=== PATIENT | female | born 1980 | race Caucasian/White ===

== ENCOUNTER → 2019-05-02 10:22 | Outpatient (BNVA) | payer MEDICARE, MEDICAID, SELFPAY | PROVIDERS: Family Provider Family Medicine; Visit Provider Nurse Practitioner | DX: F43.12 Post-traumatic stress disorder, chronic (principal); F45.1 Undifferentiated somatoform disorder; F41.1 Generalized anxiety disorder | CPT/HCPCS: 99213 ==

== ENCOUNTER → 2019-07-29 07:42 | Outpatient (BNVA) | payer MEDICARE, MEDICAID, SELFPAY | PROVIDERS: Family Provider Family Medicine; Visit Provider Nurse Practitioner | DX: F43.12 Post-traumatic stress disorder, chronic (principal); F45.1 Undifferentiated somatoform disorder; F41.1 Generalized anxiety disorder | CPT/HCPCS: 99213 ==

== ENCOUNTER → 2019-11-14 08:26 | Outpatient (BNVA) | payer MEDICARE, MEDICAID, SELFPAY | PROVIDERS: Family Provider Family Medicine; Visit Provider Nurse Practitioner | DX: F43.12 Post-traumatic stress disorder, chronic (principal); F45.1 Undifferentiated somatoform disorder; F41.1 Generalized anxiety disorder | CPT/HCPCS: 99213 ==

== ENCOUNTER 2019-11-30 10:31 | Outpatient (CLI) | payer MEDICARE, MEDICAID, SELFPAY ==
--- NOTE | 2019-11-30 10:53 | MR_ITS ---
WS: [id number] MRI THORACIC SPINE WITHOUT CONTRAST TECHNIQUE: Sagittal T1, T2 and STIR imaging. Axial T2 imaging. Noncontrast imaging obtained. CLINICAL INFORMATION: PAIN IN THORACIC SPINE COMPARISON: MRI October 21, 2016 FINDINGS: Mild thoracic curve. No acute compression. No high-grade central canal stenosis. Cord signal is gabino l. Tiny central protrusion in the mid thoracic spine at T8-T9 with slight contact of the thoracic cor e. No significant central canal stenosis. Mild facet arthropathy lower thoracic spine. Mild right T10-11 bony foraminal narrowing. Normal parav ertebral soft tissues. Cervical canal is patent. Thoracic aorta is normal. Aberrant right subclavian artery. Adrenal glands are normal. Tiny left renal cyst. MR/MR thoracic spin wo con* [id number] IMPRESSION: 1. Mild thoracic curve. No acute compression. No high-grade central canal sten osis. 2. Tiny central protrusion T8-T9 with slight contact of the thoracic cord. Mil d central canal stenosis. This is unchanged from previous. 3. Mild right T10-11 Bony foraminal narrowing. 4. Mild facet arthropathy lower thoracic spine. 5. Cord signal is normal. 6. Incidentally noted is Aberrant right subclavian artery.
== END 2019-11-30 10:32 | disposition home or self-care (01) ==
LOC: RADWPI 10:41
PROVIDERS: Family Provider Nurse Practitioner; PCP Nurse Practitioner; Visit Provider Nurse Practitioner
DX: M43.9 Deforming dorsopathy, unspecified (principal); M51.24 Other intervertebral disc displacement, thoracic region; M47.814 Spondylosis without myelopathy or radiculopathy, thoracic region; Q27.8 Other specified congenital malformations of peripheral vascular system
CPT/HCPCS: 72146

== ENCOUNTER → 2020-02-09 08:39 | Outpatient (BNVA) | payer MEDICARE, MEDICAID, SELFPAY | PROVIDERS: Family Provider Nurse Practitioner; PCP Nurse Practitioner; Visit Provider Nurse Practitioner | DX: F43.12 Post-traumatic stress disorder, chronic (principal); F41.1 Generalized anxiety disorder; F45.1 Undifferentiated somatoform disorder | CPT/HCPCS: 99214 ==

== ENCOUNTER → 2020-03-22 09:42 | Outpatient (BNVA) | payer MEDICARE, MEDICAID, SELFPAY | PROVIDERS: Family Provider Nurse Practitioner; PCP Nurse Practitioner; Visit Provider Nurse Practitioner | DX: F43.12 Post-traumatic stress disorder, chronic (principal); F45.1 Undifferentiated somatoform disorder; F41.1 Generalized anxiety disorder | CPT/HCPCS: 99214 ==

== ENCOUNTER → 2020-04-19 07:54 | Outpatient (BNVA) | payer MEDICARE, MEDICAID, SELFPAY | PROVIDERS: Family Provider Nurse Practitioner; PCP Nurse Practitioner; Visit Provider Nurse Practitioner | DX: F43.12 Post-traumatic stress disorder, chronic (principal); F45.1 Undifferentiated somatoform disorder; F41.1 Generalized anxiety disorder | CPT/HCPCS: 99214 ==

== ENCOUNTER → 2020-05-09 07:30 | Outpatient (BNVA) | payer MEDICARE, MEDICAID, SELFPAY | PROVIDERS: Family Provider Nurse Practitioner; PCP Nurse Practitioner; Visit Provider Nurse Practitioner | DX: F43.12 Post-traumatic stress disorder, chronic (principal); F45.1 Undifferentiated somatoform disorder; F41.1 Generalized anxiety disorder | CPT/HCPCS: 99214 ==

== ENCOUNTER → 2020-07-10 09:34 | Outpatient (BNVA) | payer MEDICARE, MEDICAID, SELFPAY | PROVIDERS: Family Provider Nurse Practitioner; PCP Nurse Practitioner; Visit Provider Nurse Practitioner | DX: F41.1 Generalized anxiety disorder (principal); F45.1 Undifferentiated somatoform disorder; F43.12 Post-traumatic stress disorder, chronic | CPT/HCPCS: 99214 ==

== ENCOUNTER → 2020-10-09 07:43 | Outpatient (BNVA) | payer MEDICARE, MEDICAID, SELFPAY | PROVIDERS: Family Provider Nurse Practitioner; PCP Nurse Practitioner; Visit Provider Nurse Practitioner | DX: F41.1 Generalized anxiety disorder (principal); F45.1 Undifferentiated somatoform disorder; F43.12 Post-traumatic stress disorder, chronic | CPT/HCPCS: 99214 ==

== ENCOUNTER → 2021-01-08 07:56 | Outpatient (BNVA) | payer MEDICARE, MEDICAID, SELFPAY | PROVIDERS: Family Provider Nurse Practitioner; PCP Nurse Practitioner; Visit Provider Nurse Practitioner | DX: F41.1 Generalized anxiety disorder (principal); F45.1 Undifferentiated somatoform disorder; F43.12 Post-traumatic stress disorder, chronic | CPT/HCPCS: 99214 ==

== ENCOUNTER → 2021-04-08 08:55 | Outpatient (BNVA) | payer MEDICARE, MEDICAID, SELFPAY | PROVIDERS: Family Provider Nurse Practitioner; PCP Nurse Practitioner; Visit Provider Nurse Practitioner | DX: F41.1 Generalized anxiety disorder (principal); F43.12 Post-traumatic stress disorder, chronic; F45.1 Undifferentiated somatoform disorder | CPT/HCPCS: 99214 ==

== ENCOUNTER 2021-04-24 08:05 | Outpatient (CLI) | payer MEDICARE, MEDICAID, SELFPAY ==
--- NOTE | 2021-04-24 08:15 | MM_ITS ---
WS: [id number] DIAGNOSTIC BILATERAL DIGITAL MAMMOGRAM WITH CAD Bilateral breast ultrasound, limited. HISTORY: CONRAD BREAST MASSES,TENDERNESS,FIRMNESS COMPARISON: None available. TECHNIQUE: Bilateral craniocaudad, mediolateral oblique, and mediolateral views are submitted. Spot c ompression views LEFT and RIGHT breast. Computer aided detection utilized. Breast composition: The breasts are extremely dense, which lowers the sensitivity of mammography. Dif fuse increased density throughout each breast. Patient has multiple palpable areas within each breast . Markers are placed over each breast. There is no underlying distortion or discrete soft tissue mass within either breast. The very dense fibroglandular density obscures the breast parenchyma. In the RIGHT axilla there is an infiltrating area of increased density within the axillary tail exte nding toward the axilla. This area of increased density within the axillary fat measures 4.3 x 2.9 cm . No adenopathy appreciated of any concerns. Bilateral breast ultrasound. RIGHT breast: The soft tissue abnormality towards the RIGHT axillary tail/axilla seen by mammography corresponds to an infiltrating soft tissue mass with increased vascularity. The margins are very poor ly defined and there is mixed echogenicity which extends to the superficial soft tissue. Area of abno rmality measures approximately 2.9 x 1.0 cm. Benign cyst RIGHT breast at 1:00, 1 cm from the nipple. Well-circumscribed mass RIGHT breast at 1:00 2 cm the nipple measures 7 x 5 x 8 mm. Additional well-circumscribed hypoechoic mass at 11:00, 7 cm f rom the nipple measures 9 x 4 x 7 mm with increased vascularity. There are additional smaller cysts s cattered throughout the RIGHT breast in the areas directed by the patient. Several benign-appearing R IGHT axillary lymph nodes. LEFT breast: Dense fibroglandular tissue 1:00, 2 and 6 cm from the nipple. No mass. There is an abnor mal lymph node in the LEFT axilla. Asymmetric thickening of the cortex which is abnormal. Normal vasc ularity to the lymph node. The size of the lymph node is normal. MM/[place] [id number] IMPRESSION: BI-RADS: 4-Suspicious Finding-Biopsy Should Be Considered FOLLOW UP: Biopsy Recommended 1. Infiltrating soft tissue mass in the RIGHT axillary tail/axilla. Correspond s to the visually prominent soft tissue. Abnormal imaging findings by mammogra phy and ultrasound. Infiltrating soft tissue mass with increased vascularity. T his does not have typical appearance for breast neoplasm but needs to be biopsi ed for further evaluation. This can be biopsied by ultrasound or in office biop sy. 2. Two hypoechoic masses in the RIGHT breast need further evaluation by biops y. Well-circumscribed masses at 1:00 and 11:00. These may be benign fibroadenom as but they are not simple cysts and need further evaluation by biopsy. Ultraso und-guided biopsy recommended. 3. Abnormal LEFT axillary lymph node. Asymmetric thickening of the cortex. Ult rasound-guided biopsy recommended.
== END 2021-04-24 08:06 | disposition home or self-care (01) ==
PROVIDERS: Family Provider Nurse Practitioner; PCP Nurse Practitioner; Visit Provider Nurse Practitioner
DX: R92.8 Other abnormal and inconclusive findings on diagnostic imaging of breast (principal); N64.4 Mastodynia; N63.31 Unspecified lump in axillary tail of the right breast; N63.12 Unspecified lump in the right breast, upper inner quadrant; N63.11 Unspecified lump in the right breast, upper outer quadrant
CPT/HCPCS: 76642; 77066

== ENCOUNTER 2021-05-06 08:31 | Outpatient (CLI) | payer MEDICARE, MEDICAID, SELFPAY ==
--- NOTE | 2021-05-06 | US_ITS ---
WS: [id number] ULTRASOUND-GUIDED RIGHT BREAST BIOPSY CLINICAL INFORMATION: BREAST MASS COMPARISON: None. FINDINGS: The procedure including risks, benefits, and complications were discussed with the patient who agreed to proceed. Using sterile technique patient was prepped and draped in the usual sterile fashion. Aft er 1% lidocaine utilizing real-time ultrasound guidance 5 14-gauge cores were obtained of the RIGHT b reast lesion at the 1 o'clock position. Next, after 1% lidocaine using utilizing real-time ultrasound guidance 5 14-gauge cores were obtained of the RIGHT breast lesions at the 11:00 position and axilla ry tail. Next, using sterile technique patient was prepped and draped in usual sterile fashion. After 1% lidoc maría elena using ultrasound guidance 5 14-gauge cores were obtained of the enlarged lymph node LEFT axilla. No immediate complications. Pathology demonstrates A. Breast, right, 1 o'clock position , biopsy: -Fibroadenoma. -No malignancy identified. B. Breast, right, 11 o'clock position , biopsy: -Lymphoid tissue with reactive follicular hyperplasia and sinus histiocytosis. -No malignancy identified. C. Breast, right, axillary tail , biopsy: -Benign breast tissue with columnar cell changes and stromal sclerosis. -No malignancy identified. D. Lymph node, left, axillary , biopsy: -Lymphoid tissue with reactive follicular hyperplasia and sinus histiocytosis. -No malignancy identified. US/[place] [id number] IMPRESSION: 1. Uncomplicated ultrasound-guided RIGHT breast biopsy and LEFT axillary biops y. 2. The pathology demonstrates no evidence of malignancy in the RIGHT breast bi opsy sites or LEFT axilla. 3. Recommend 6 month follow-up RIGHT breast diagnostic mammography with ultras ound and LEFT axillary ultrasound postbiopsy. BI-RADS: 2-Benign FOLLOW UP: 6 Month Follow-up
--- NOTE | 2021-05-06 | US_ITS ---
WS: [id number] ULTRASOUND-GUIDED RIGHT BREAST BIOPSY CLINICAL INFORMATION: BREAST MASS COMPARISON: None. FINDINGS: The procedure including risks, benefits, and complications were discussed with the patient who agreed to proceed. Using sterile technique patient was prepped and draped in the usual sterile fashion. Aft er 1% lidocaine utilizing real-time ultrasound guidance 5 14-gauge cores were obtained of the RIGHT b reast lesion at the 1 o'clock position. Next, after 1% lidocaine using utilizing real-time ultrasound guidance 5 14-gauge cores were obtained of the RIGHT breast lesions at the 11:00 position and axilla ry tail. Next, using sterile technique patient was prepped and draped in usual sterile fashion. After 1% lidoc maría elena using ultrasound guidance 5 14-gauge cores were obtained of the enlarged lymph node LEFT axilla. No immediate complications. Pathology demonstrates A. Breast, right, 1 o'clock position , biopsy: -Fibroadenoma. -No malignancy identified. B. Breast, right, 11 o'clock position , biopsy: -Lymphoid tissue with reactive follicular hyperplasia and sinus histiocytosis. -No malignancy identified. C. Breast, right, axillary tail , biopsy: -Benign breast tissue with columnar cell changes and stromal sclerosis. -No malignancy identified. D. Lymph node, left, axillary , biopsy: -Lymphoid tissue with reactive follicular hyperplasia and sinus histiocytosis. -No malignancy identified. US/US [place] [id number] IMPRESSION: 1. Uncomplicated ultrasound-guided RIGHT breast biopsy and LEFT axillary biops y. 2. The pathology demonstrates no evidence of malignancy in the RIGHT breast bi opsy sites or LEFT axilla. 3. Recommend 6 month follow-up RIGHT breast diagnostic mammography with ultras ound and LEFT axillary ultrasound postbiopsy. BI-RADS: 2-Benign FOLLOW UP: 6 Month Follow-up
--- NOTE | 2021-05-06 | US_ITS ---
WS: [id number] ULTRASOUND-GUIDED RIGHT BREAST BIOPSY CLINICAL INFORMATION: BREAST MASS COMPARISON: None. FINDINGS: The procedure including risks, benefits, and complications were discussed with the patient who agreed to proceed. Using sterile technique patient was prepped and draped in the usual sterile fashion. Aft er 1% lidocaine utilizing real-time ultrasound guidance 5 14-gauge cores were obtained of the RIGHT b reast lesion at the 1 o'clock position. Next, after 1% lidocaine using utilizing real-time ultrasound guidance 5 14-gauge cores were obtained of the RIGHT breast lesions at the 11:00 position and axilla ry tail. Next, using sterile technique patient was prepped and draped in usual sterile fashion. After 1% lidoc maría elena using ultrasound guidance 5 14-gauge cores were obtained of the enlarged lymph node LEFT axilla. No immediate complications. Pathology demonstrates A. Breast, right, 1 o'clock position , biopsy: -Fibroadenoma. -No malignancy identified. B. Breast, right, 11 o'clock position , biopsy: -Lymphoid tissue with reactive follicular hyperplasia and sinus histiocytosis. -No malignancy identified. C. Breast, right, axillary tail , biopsy: -Benign breast tissue with columnar cell changes and stromal sclerosis. -No malignancy identified. D. Lymph node, left, axillary , biopsy: -Lymphoid tissue with reactive follicular hyperplasia and sinus histiocytosis. -No malignancy identified. US/[place] [id number] IMPRESSION: 1. Uncomplicated ultrasound-guided RIGHT breast biopsy and LEFT axillary biops y. 2. The pathology demonstrates no evidence of malignancy in the RIGHT breast bi opsy sites or LEFT axilla. 3. Recommend 6 month follow-up RIGHT breast diagnostic mammography with ultras ound and LEFT axillary ultrasound postbiopsy. BI-RADS: 2-Benign FOLLOW UP: 6 Month Follow-up
--- NOTE | 2021-05-06 08:46 | US_ITS ---
WS: [id number] ULTRASOUND-GUIDED RIGHT BREAST BIOPSY CLINICAL INFORMATION: BREAST MASS COMPARISON: None. FINDINGS: The procedure including risks, benefits, and complications were discussed with the patient who agreed to proceed. Using sterile technique patient was prepped and draped in the usual sterile fashion. Aft er 1% lidocaine utilizing real-time ultrasound guidance 5 14-gauge cores were obtained of the RIGHT b reast lesion at the 1 o'clock position. Next, after 1% lidocaine using utilizing real-time ultrasound guidance 5 14-gauge cores were obtained of the RIGHT breast lesions at the 11:00 position and axilla ry tail. Next, using sterile technique patient was prepped and draped in usual sterile fashion. After 1% lidoc maría elena using ultrasound guidance 5 14-gauge cores were obtained of the enlarged lymph node LEFT axilla. No immediate complications. Pathology demonstrates A. Breast, right, 1 o'clock position , biopsy: -Fibroadenoma. -No malignancy identified. B. Breast, right, 11 o'clock position , biopsy: -Lymphoid tissue with reactive follicular hyperplasia and sinus histiocytosis. -No malignancy identified. C. Breast, right, axillary tail , biopsy: -Benign breast tissue with columnar cell changes and stromal sclerosis. -No malignancy identified. D. Lymph node, left, axillary , biopsy: -Lymphoid tissue with reactive follicular hyperplasia and sinus histiocytosis. -No malignancy identified. US/US biopsy lymph node breast/ax IMPRESSION: 1. Uncomplicated ultrasound-guided RIGHT breast biopsy and LEFT axillary biops y. 2. The pathology demonstrates no evidence of malignancy in the RIGHT breast bi opsy sites or LEFT axilla. 3. Recommend 6 month follow-up RIGHT breast diagnostic mammography with ultras ound and LEFT axillary ultrasound postbiopsy. BI-RADS: 2-Benign FOLLOW UP: 6 Month Follow-up
== END 2021-05-06 08:32 | disposition home or self-care (01) ==
LOC: RAD 08:33
PROVIDERS: PCP Nurse Practitioner; Visit Provider Nurse Practitioner
DX: N64.9 Disorder of breast, unspecified (principal); R92.8 Other abnormal and inconclusive findings on diagnostic imaging of breast
CPT/HCPCS: 19083; 19084; 38505; 76942; 88305

== ENCOUNTER → 2021-07-01 08:57 | Outpatient (BNVA) | payer MEDICARE, MEDICAID, SELFPAY | PROVIDERS: PCP Nurse Practitioner; Visit Provider Nurse Practitioner | DX: F41.1 Generalized anxiety disorder (principal); F45.1 Undifferentiated somatoform disorder; F43.12 Post-traumatic stress disorder, chronic | CPT/HCPCS: 99214 ==

== ENCOUNTER 2022-06-09 11:21 | Outpatient (CLI) | payer MEDICARE, MEDICAID, SELFPAY ==
--- NOTE | 2022-06-09 11:37 | MR_ITS ---
WS: [id number] MRI BRAIN WITH AND WITHOUT CONTRAST HISTORY: UNSPECIFIED CONVULSIONS/TRANSIENT ALTERATION OF AWARENESS COMPARISON: 11/21/2016 TECHNIQUE: Multiplanar imaging performed through the brain with MultiHance 12 ml's IV. There are a few scattered T2 and FLAIR signal hyperintensities. Majority of the increased signal with in the corpus callosum at the occipital horns, RIGHT greater than LEFT. Very similar to the prior madelyn dy with very minimal progression on the LEFT. No significant abnormality within the visualized brains tem or cerebellum. No temporal lobe signal abnormalities. No atrophy or volume loss. No susceptibility artifacts or prior lacunar infarcts. Ventricles and extra-axial spaces are normal. Clivus and pituitary gland are normal. Visualized posterior fossa and brainstem are also normal. Postcontrast images are negative for masses or vascular malformations. White matter lesions around th e occipital horns do not enhance. Dural venous sinuses are normal. Paranasal sinuses: Well aerated with no significant disease. Mastoid air cells: Normal. Calvarium and scalp: Normal. MR/MR head wo/w con [id number] IMPRESSION: 1. Minimal increase in the pericallosal signal abnormality involving the occip ital horns. Slight increase of the white matter lesions greatest on the LEFT. N one of these white matter lesions enhance. 2. No enhancing masses. 3. No active demyelination.
[2022-06-09] MEDS: gadobenate dimeglumine 20 mL vial IV (12:46)
== END 2022-06-09 11:22 | disposition home or self-care (01) ==
LOC: RAD 11:23
PROVIDERS: PCP Nurse Practitioner; Visit Provider Internal Medicine
DX: R56.9 Unspecified convulsions (principal); R40.4 Transient alteration of awareness
CPT/HCPCS: 70553; A9577

== ENCOUNTER 2023-09-22 09:01 | Outpatient (CLI) | payer MEDICARE, MEDICAID, SELFPAY ==
--- NOTE | 2023-09-22 09:06 | MR_ITS ---
WS: [id number] MRI HEAD WITHOUT CONTRAST TECHNIQUE: Sagittal T1, T2 axial, T2 axial FLAIR, axial and coronal T1 images, axial susceptibility w eighted imaging, axial diffusion weighted images, and coronal T2 images were obtained. 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 Unable to obtain IV access. No evidence of restricted diffusion to suggest acute ischemia. Ventricular system and basal cisterns are patent. Mild patchy supratentorial white matter lesions some in a pericallosal distribution suspi cious for demyelinating disease. Largest lesion adjacent to the RIGHT posterior lateral ventricle eliud suring 11 mm similar to previous. No evidence of progression compared to 2022. No significant parenchymal volume loss. Mild T1 hypointense lesion load. No significant atrophy of th e corpus callosum. Normal optic chiasm and pituitary infundibulum. Temporal lobes and hippocampal for mations are normal in appearance. Normal vascular flow voids at the skull base. No extra-axial fluid collections. No evidence of mass or mass effect. Paranasal sinuses and mastoid air cells are well aer ated. No hemosiderin on susceptibility-weighted images. MR/MR head wo con* [id number] IMPRESSION: 1. Mild patchy supratentorial white matter changes stable compared to 2022. No evidence of progression. 2. Largest lesion measuring 11 mm adjacent to the posterior horn RIGHT lateral ventricle with T1 hypointensity. This is unchanged. 3. No significant parenchymal volume loss. 4. No atrophy of the corpus callosum. 5. No hemosiderin on susceptibility-weighted images. 6. No other suspicious findings.
== END 2023-09-22 09:02 | disposition home or self-care (01) ==
LOC: RAD 09:02
PROVIDERS: PCP Nurse Practitioner; Visit Provider Internal Medicine
DX: G37.9 Demyelinating disease of central nervous system, unspecified (principal); R40.4 Transient alteration of awareness; G93.9 Disorder of brain, unspecified
CPT/HCPCS: 70551